=== PATIENT | male | born 2000 | race Caucasian/White ===

== ENCOUNTER 2023-01-10 02:28 | Emergency (ER) | payer OTHER ==
[~2023-01-10] VITALS: Ht 188 cm; Wt 81.8 kg
[2023-01-10 02:40] VITALS: BP 132/80
[2023-01-10] MEDS ORDERED: ibuprofen tablet 400 MG TABLET PO ONE (03:00)
[2023-01-10] MEDS ORDERED: IBUP-1984 PO (03:07)
== END 2023-01-10 03:30 | disposition home or self-care (01) ==
LOC: ER 02:28
DX: M54.6 Pain in thoracic spine (principal); M54.59 Other low back pain
CPT/HCPCS: 99282